=== PATIENT | female | born 1990 | race African-American/Black ===

== ENCOUNTER 2023-08-24 18:28 | Emergency (ER) | payer MEDICAID ==
[~2023-08-24] VITALS: Ht 165.1 cm; Wt 86.6 kg
[2023-08-24 18:40] VITALS: BP 130/85; PULSE 78; RESP 16; TEMP 97.1; O2SAT 100
[2023-08-24 19:25] LABS: BASOPHILS # (AUTO) 0.1 K/uL (0.00-0.22); EOSINOPHILS # (AUTO) 0.2 K/uL (0-0.4); EOSINOPHILS % (AUTO) 2.7 % (0.0-4.0); HEMATOCRIT 28.5 % (36-48); HEMOGLOBIN 9.1 g/dL (12.0-16.0); LYMPHOCYTES # (AUTO) 1.7 K/uL (2.5-16.5); LYMPHOCYTES % (AUTO) 23.2 % (20.5-51.1); MEAN CORPUSCULAR HEMOGLOBIN 25 pg (27-31); MEAN CORPUSCULAR HGB CONC 32 g/dL (33-37); MEAN CORPUSCULAR VOLUME 79.1 fL (80-94); MONOCYTES # (AUTO) 0.4 K/uL (0.8-1.0); MONOCYTES % (AUTO) 5.9 % (1.7-9.3); NEUTROPHILS # (AUTO) 4.8 K/uL (1.8-7.7); NEUTROPHILS % (AUTO) 67.2 % (42.2-75.2); PLATELET COUNT (AUTO) 398 K/uL (140-450); RED CELL DISTRIBUTION WIDTH 18.4 % (11.6-13.7); WHITE BLOOD COUNT (AUTO) 7.1 K/uL (4.8-10.8)
[2023-08-24 19:46] LABS: ALBUMIN 3.5 g/dL (3.4-5.0); ANION GAP 13.5 (8-16); CALCIUM 8.1 mg/dL (8.5-10.1); CARBON DIOXIDE 24.5 mmol/L (21-32); CREATININE 0.7 mg/dL (0.6-1.3); TOTAL BILIRUBIN 0.1 mg/dL (0.0-1.0); TOTAL PROTEIN, SERUM 7.1 g/dL (6.4-8.2)
[2023-08-24] MEDS ORDERED: FERR325E14 PO (19:56)
== END 2023-08-24 20:08 | disposition home or self-care (01) ==
LOC: MED 18:28
DX: D64.9 Anemia, unspecified (principal); N93.8 Other specified abnormal uterine and vaginal bleeding; F20.9 Schizophrenia, unspecified; F31.9 Bipolar disorder, unspecified; Z79.899 Other long term (current) drug therapy
CPT/HCPCS: 36415; 80053; 81025; 85025; 99283

== ENCOUNTER 2023-08-30 11:14 | Emergency (ER) | payer MEDICAID ==
[~2023-08-30] VITALS: Ht 167.6 cm; Wt 86.6 kg
[~2023-08-30 11:14] MED LIST: FERR325E14 PO
[2023-08-30 11:23] VITALS: BP 137/87; PULSE 91; RESP 18; TEMP 98.1; O2SAT 100
== END 2023-08-30 12:45 | disposition left against medical advice (07) ==
LOC: MED 11:14
DX: F31.9 Bipolar disorder, unspecified (principal); F20.9 Schizophrenia, unspecified; Z76.0 Encounter for issue of repeat prescription; Z53.21 Procedure and treatment not carried out due to patient leaving prior to being seen by health care provider